=== PATIENT | female | born 1955 | race Caucasian/White ===

== ENCOUNTER 2023-10-24 18:12 | Emergency (ER) | payer MEDICARE, OTHER ==
[2023-10-24 21:10] LABS: #Monocytes 0.6 thou/uL (0.11-0.59); #Neutrophils 1.5 thou/uL (1.40-6.50); %Basophils 0.3 % (0.0-1.0); %Eosinophils 0.5 % (0.0-10.0); %Lymphocytes 42.1 % (21.0-51.0); %Monocytes 15.3 % (0.0-10.0); %Neutrophils 41.3 % (42.0-75.0); Hemoglobin 14.8 g/dL (12.0-16.0); Mean Corpuscular HGB CONC 33.6 g/dL (32.0-36.0); Mean Corpuscular Hemoglobin 28.9 pg (27.0-31.0); Mean Corpuscular Volume 85.9 fl (78.0-98.0); Mean Platelet Volume 11.2 fL (7.4-10.4); Platelet Count 186 10x3/uL (130-400); RBC Distribution Width 13.5 % (11.5-14.5); Red Blood Cell (RBC) Count 5.12 mill/uL (4.20-5.40); White Blood Cell (WBC) Count 3.7 10x3/uL (4.8-10.8)
[2023-10-24 21:38] LABS: Troponin I 0.011 ng/mL (< 0.028)
[2023-10-24 21:42] LABS: ALT (SGPT) 21 U/L (8-55); AST (SGOT) 26 U/L (5-34); Albumin 4.1 g/dL (3.4-4.8); Alkaline Phosphatase 84 U/L (40-110); Anion Gap 12 mmol/L (10-20); BUN (Urea Nitrogen) 14 mg/dL (9.8-20.1); Bilirubin, Total 0.4 mg/dL (0.2-1.2); Calc. Creatinine Clearance 0 mL/min (70-130); Calcium 8.9 mg/dL (7.8-10.44); Carbon Dioxide 25 mmol/L (23-31); Chloride 102 mmol/L (98-107); Estimated GFR 78; Globulin 2.9 g/dL (2.4-3.5); Glucose 113 mg/dL (80-115); Potassium 4.3 mmol/L (3.5-5.1); Sodium 135 mmol/L (136-145)
[2023-10-24 21:52] LABS: SARS-CoV-2 NAA Rapid Test DETECTED (NotDetected)
== END 2023-10-24 23:00 | disposition home or self-care (01) ==
LOC: ERS 18:12
DX: U07.1 COVID-19 (principal); R07.89 Other chest pain; E11.9 Type 2 diabetes mellitus without complications; Z79.4 Long term (current) use of insulin; Z79.899 Other long term (current) drug therapy
CPT/HCPCS: 0240U; 71045; 80053; 84484; 85025; 93005; 99284; 36415

== ENCOUNTER 2024-09-05 09:23 | Outpatient (CLI) | payer MEDICARE | END 2024-09-05 09:24 | disposition home or self-care (01) | LOC: BICCT 09:23 | PROVIDERS: ATTEND Specialist | DX: G45.3 Amaurosis fugax (principal); I67.2 Cerebral atherosclerosis; I67.89 Other cerebrovascular disease | CPT/HCPCS: 70470 ==